=== PATIENT | female | born 1955 | race Caucasian/White ===

== ENCOUNTER 2018-05-01 15:09 | Emergency (ER) | payer MEDICAID ==
[~2018-05-01] VITALS: Ht 167.6 cm; Wt 68.0 kg
[~2018-05-01 15:09] MED LIST: CLIN150C8 PO; HYDR-569 PO
[2018-05-01 15:18] VITALS: BP 150/70
[2018-05-01 15:40] LABS: CLARITY,URINE CLEAR (Clear); COLOR,URINE YELLOW (Yellow); GLUCOSE, URINE NEGATIVE (Neg); KETONES,URINE NEGATIVE (Neg); LEUKOCYTE ESTERASE ,URINE NEGATIVE (Neg); NITRITES, URINE NEGATIVE (Neg); OCCULT BLOOD,URINE NEGATIVE (Neg); PH,URINE 8.5 (4.8-8.0); PROTEIN,URINE NEGATIVE (Neg); UROBILINOGEN,URINE 0.2 E.U/dL (0.2-1.0)
[2018-05-01 15:43] LABS: UA COLLECTION TYPE CLN CATCH MIDSTREAM
[2018-05-01] MEDS ORDERED: ketorolac trometh inj. 60 MG/2 ML VIAL IM ONE (17:00)
== END 2018-05-01 17:18 | disposition home or self-care (01) ==
LOC: ER 15:09
DX: M54.5 Low back pain (principal); Z88.0 Allergy status to penicillin; Z79.2 Long term (current) use of antibiotics; Z79.899 Other long term (current) drug therapy
CPT/HCPCS: 81003; 96372; 99283; J1885

== ENCOUNTER 2018-05-14 04:50 | Emergency (ER) | payer MEDICAID ==
[~2018-05-14] VITALS: Ht 167.6 cm; Wt 68.2 kg
[2018-05-14 05:58] LABS: BASOPHILS % (AUTO) 0.3 % (0-1); EOSINOPHILS # (AUTO) 0.3 X10'3 (0-0.9); EOSINOPHILS % (AUTO) 3.8 % (0-6); HEMATOCRIT 40.9 % (35.0-45.0); HEMOGLOBIN 14.1 g/dl (12.0-16.0); LYMPHOCYTES % (AUTO) 24.5 % (21-51); MEAN CORPUSCULAR HEMOGLOBIN 32.7 PG (27.0-31.0); MEAN CORPUSCULAR HGB CONC 34.5 % (33.0-36.5); MEAN PLATELET VOLUME 9.9 FL (7.4-10.4); MONOCYTES # (AUTO) 0.5 X10'3 (0-0.9); MONOCYTES % (AUTO) 6.3 % (2-12); NEUTROPHILS # (AUTO) 5.4 X10'3 (1.8-7.7); NEUTROPHILS % (AUTO) 65.1 % (42-75); PLATELET COUNT 180 X10'3 (140-440); RED CELL DISTRIBUTION WIDTH 12.7 % (11.5-14.5); WHITE BLOOD COUNT 8.2 X10'3 (4.5-11.0)
[2018-05-14 06:12] LABS: ALANINE AMINOTRANSFERASE 27 U/L (12-78); ALBUMIN 3.3 G/DL (3.4-5.0); ALBUMIN/GLOBULIN RATIO 0.9 (1.1-1.5); ALKALINE PHOSPHATASE 82 IU/L (46-116); ANION GAP 8 (8-16); ASPARTATE AMINO TRANSFERASE 18 U/L (10-37); BILIRUBIN,TOTAL 0.2 MG/DL (0.1-1.0); BLOOD UREA NITROGEN 10 MG/DL (7-18); BUN/CREATININE RATIO 12.5 (6.6-38.0); CALCIUM 8.6 MG/DL (8.5-10.1); CHLORIDE 103 MMOL/L (99-107); GLUCOSE 184 MG/DL (70-104); POTASSIUM 3.2 MMOL/L (3.5-5.1); SODIUM 138 MMOL/L (135-145); TOTAL CARBON DIOXIDE 26.6 MMOL/L (24-32); TOTAL PROTEIN 6.9 G/DL (6.4-8.2); eGFR 73 ML/MIN
[2018-05-14] MEDS ORDERED: ketorolac tromethamine 15mg/ml inj. IV ONE (06:55)
[2018-05-14] MEDS ORDERED: normal saline 1000ML IV soln IVB ONE ×2 (06:55→08:40)
[2018-05-14 07:03] LABS: CLARITY,URINE CLEAR (Clear); COLOR,URINE YELLOW (Yellow); GLUCOSE, URINE NEGATIVE (Neg); KETONES,URINE NEGATIVE (Neg); LEUKOCYTE ESTERASE ,URINE NEGATIVE (Neg); NITRITES, URINE NEGATIVE (Neg); OCCULT BLOOD,URINE NEGATIVE (Neg); PROTEIN,URINE NEGATIVE (Neg); UROBILINOGEN,URINE 0.2 E.U/dL (0.2-1.0)
[2018-05-14 07:06] LABS: UA COLLECTION TYPE CLN CATCH MIDSTREAM
[2018-05-14] MEDS ORDERED: iohexol 300mg/ml 100ml inj. ONE (07:08)
[2018-05-14 07:17] LABS: URINE AMPHETAMINE SCREEN POSITIVE (Neg); URINE BARBITUATE SCREEN NEGATIVE (Neg); URINE BENZODIAZEPINES SCREEN POSITIVE (Neg); URINE CANNABINOID SCREEN NEGATIVE (Neg); URINE COCAINE SCREEN NEGATIVE (Neg); URINE METHADONE SCREEN NEGATIVE (Neg); URINE OPIATE SCREEN NEGATIVE (Neg); URINE PHENCYCLIDINE SCREEN NEGATIVE (Neg)
[2018-05-14 07:18] LABS: MAGNESIUM 1.6 MG/DL (1.5-2.4)
[2018-05-14] MEDS ORDERED: potassium 10mEq/100ml NS w/LIDOcaine (10mg/bag) IV ONE (09:55)
[2018-05-14] MEDS ORDERED: potassium Cl 20 mEq SR tablet PO ONE (09:55)
[2018-05-14] MEDS ORDERED: magnesium oxide 400mg tablet PO ONE (09:55)
[2018-05-14] MEDS ORDERED: bisacodyl 10mg suppository rectal RC ONE (09:55)
[2018-05-14] MEDS ORDERED: NAPR-56 PO (09:57)
[2018-05-14] MEDS ORDERED: morphine 4 MG/ML inj SYRINge IV ONE (10:05)
[2018-05-14 12:29] VITALS: BP 136/72
== END 2018-05-14 12:53 | disposition home or self-care (01) ==
LOC: ER 04:51
DX: R10.31 Right lower quadrant pain (principal); E87.6 Hypokalemia; K59.00 Constipation, unspecified; F15.10 Other stimulant abuse, uncomplicated; G89.29 Other chronic pain; Z88.0 Allergy status to penicillin; Z79.899 Other long term (current) drug therapy
CPT/HCPCS: 36415; 74177; 76856; 80053; 80305; 81003; 83735; 85025; 85610; 96365; 96375; 99285; J1885; J2270; J3480; J7030; Q9967

== ENCOUNTER 2018-07-23 16:56 | Emergency (ER) | payer MEDICAID ==
[~2018-07-23] VITALS: Ht 167.6 cm; Wt 61.6 kg
[2018-07-23 17:10] VITALS: BP 152/101
[2018-07-23] MEDS ORDERED: HYDROcodone/acetaminophen 10/325mg tab PO ONE (18:00)
[2018-07-23] MEDS ORDERED: HYDR-569 PO (18:08)
== END 2018-07-23 19:05 | disposition home or self-care (01) ==
LOC: ER 16:57
DX: S52.572A Other intraarticular fracture of lower end of left radius, initial encounter for closed fracture (principal); S52.615A Nondisplaced fracture of left ulna styloid process, initial encounter for closed fracture; G89.29 Other chronic pain; Z88.0 Allergy status to penicillin; Z79.899 Other long term (current) drug therapy; V87.8XXA Person injured in other specified noncollision transport accidents involving motor vehicle (traffic), initial encounter; Y93.89 Activity, other specified; Y92.89 Other specified places as the place of occurrence of the external cause; Y99.8 Other external cause status
CPT/HCPCS: 29125; 73110; 99284; A4565; A6449

== ENCOUNTER 2020-07-27 01:20 | Emergency (ER) | payer MEDICAID ==
[~2020-07-27] VITALS: Ht 167.6 cm; Wt 73.2 kg
[~2020-07-27 01:20] MED LIST changes: +HYDR-4383 PO; -HYDR-569 PO
[2020-07-27] MEDS ORDERED: diazepam 5mg tablet PO ONE (02:20)
[2020-07-27] MEDS ORDERED: ketorolac tromethamine 15mg/ml inj. IM ONE (02:20)
[2020-07-27 03:19] VITALS: BP 152/63
== END 2020-07-27 03:23 | disposition home or self-care (01) ==
LOC: ER 01:21
DX: M54.5 Low back pain (principal); G89.29 Other chronic pain; Z88.0 Allergy status to penicillin; Z79.2 Long term (current) use of antibiotics; Z79.899 Other long term (current) drug therapy
CPT/HCPCS: 96372; 99283; J1885